=== PATIENT | female | born 1985 | race Caucasian/White ===

== ENCOUNTER 2017-11-18 14:34 | Outpatient (CLI) | payer BC | END 2017-11-18 14:35 | disposition home or self-care (01) | LOC: BICULT 14:34 | PROVIDERS: ATTEND Advanced Practice Midwife | DX: N63.20 Unspecified lump in the left breast, unspecified quadrant (principal) ==

== ENCOUNTER 2018-07-08 17:04 | Emergency (ER) | payer BC ==
[2018-07-08 17:41] LABS: #Basophils 0.1 thou/uL (0.0-0.2); #Eosinphils 0.2 thou/uL (0.0-0.7); #Lymphocytes 2.3 thou/uL (1.20-3.40); #Monocytes 0.4 thou/uL (0.11-0.59); #Neutrophils 3.7 thou/uL (1.40-6.50); %Basophils 1.1 % (0.0-1.0); %Lymphocytes 34.4 % (21.0-51.0); %Monocytes 5.9 % (0.0-10.0); %Neutrophils 55.6 % (42.0-75.0); Hemoglobin 13.7 g/dL (12.0-16.0); Mean Corpuscular HGB CONC 34.9 g/dL (32.0-36.0); Mean Corpuscular Hemoglobin 31.1 pg (27.0-31.0); Mean Platelet Volume 6.4 fL (7.4-10.4); Platelet Count 224 thou/uL (130-400); Red Blood Cell (RBC) Count 4.42 mill/uL (4.20-5.40); White Blood Cell (WBC) Count 6.7 thou/uL (4.8-10.8)
--- NOTE | 2018-07-08 17:51 | RAD ---
TWO VIEWS OF THE CHEST: 07/08/18 COMPARISON: None. HISTORY: Intermittent chest pain. FINDINGS: No pneumothorax, pleural fluid, focal consolidation, or alveolar edema. Heart and mediastinal contour s are unremarkable. IMPRESSION: No acute findings. POS: [facility]
[2018-07-08 17:58] LABS: ALT (SGPT) 16 U/L (8-55); AST (SGOT) 18 U/L (5-34); Albumin 4.6 g/dL (3.5-5.0); Alkaline Phosphatase 69 U/L (40-150); Anion Gap 15 mmol/L (10-20); BUN (Urea Nitrogen) 13 mg/dL (7.0-18.7); Bilirubin, Total 0.4 mg/dL (0.2-1.2); Calc. Creatinine Clearance 0 mL/min (70-130); Calcium 9.8 mg/dL (7.8-10.44); Carbon Dioxide 25 mmol/L (22-29); Chloride 104 mmol/L (98-107); Estimated GFR-MDRD Greater than 90; Globulin 2.8 g/dL (2.4-3.5); Glucose 94 mg/dL (70-105); Potassium 3.7 mmol/L (3.5-5.1); Protein, Total 7.4 g/dL (6.0-8.3); Sodium 140 mmol/L (136-145)
== END 2018-07-08 18:15 | disposition home or self-care (01) ==
LOC: SCSER 17:04
DX: R07.89 Other chest pain (principal); Z79.899 Other long term (current) drug therapy
CPT/HCPCS: 36415; 71046; 80053; 84484; 85025; 93005

== ENCOUNTER 2018-12-14 21:48 | Emergency (ER) | payer BC ==
[2018-12-14 22:27] LABS: #Basophils 0.1 thou/uL (0.0-0.2); #Monocytes 0.8 thou/uL (0.11-0.59); #Neutrophils 10.7 thou/uL (1.40-6.50); %Basophils 0.5 % (0.0-1.0); %Eosinophils 0.1 % (0.0-10.0); %Lymphocytes 14.8 % (21.0-51.0); %Monocytes 5.5 % (0.0-10.0); %Neutrophils 79.1 % (42.0-75.0); Hemoglobin 15.5 g/dL (12.0-16.0); Mean Corpuscular HGB CONC 36.3 g/dL (32.0-36.0); Mean Corpuscular Hemoglobin 31.9 pg (27.0-31.0); Mean Corpuscular Volume 87.9 fL (78.0-98.0); Platelet Count 330 thou/uL (130-400); RBC Distribution Width 11.2 % (11.5-14.5); Red Blood Cell (RBC) Count 4.85 mill/uL (4.20-5.40); White Blood Cell (WBC) Count 13.5 thou/uL (4.8-10.8)
--- NOTE | 2018-12-14 22:27 | RAD ---
EXAM: Single view of the chest HISTORY: Chest palpitations COMPARISON: None FINDINGS: Single view of the chest shows a normal sized cardiomediastinal silhouette. There is no macey dence of consolidation, mass, or pleural effusion. The bones are unremarkable. IMPRESSION: No evidence of acute cardiopulmonary disease
[2018-12-14 22:37] LABS: ALT (SGPT) 25 U/L (8-55); AST (SGOT) 17 U/L (5-34); Albumin 4.5 g/dL (3.5-5.0); Alkaline Phosphatase 60 U/L (40-150); Anion Gap 15 mmol/L (10-20); BUN (Urea Nitrogen) 13 mg/dL (7.0-18.7); Bilirubin, Total 0.2 mg/dL (0.2-1.2); Calc. Creatinine Clearance 0 mL/min (70-130); Calcium 9.4 mg/dL (7.8-10.44); Carbon Dioxide 21 mmol/L (22-29); Chloride 110 mmol/L (98-107); Estimated GFR-MDRD Greater than 90; Glucose 193 mg/dL (70-105); Potassium 4.2 mmol/L (3.5-5.1); Protein, Total 7.5 g/dL (6.0-8.3); Sodium 142 mmol/L (136-145)
== END 2018-12-14 23:36 | disposition home or self-care (01) ==
LOC: SCSER 21:48
DX: E05.90 Thyrotoxicosis, unspecified without thyrotoxic crisis or storm (principal); R00.0 Tachycardia, unspecified
CPT/HCPCS: 71045; 80053; 84443; 84484; 85025; 85379; 93005; 96360

== ENCOUNTER 2018-12-17 19:32 | Emergency (ER) | payer BC | END 2018-12-17 20:28 | disposition home or self-care (01) | LOC: SCSER 19:32 | DX: G44.209 Tension-type headache, unspecified, not intractable (principal); E06.3 Autoimmune thyroiditis; Z79.899 Other long term (current) drug therapy | CPT/HCPCS: 99283 ==

== ENCOUNTER 2019-09-14 16:37 | Day surgery (SDC) | payer BC ==
[2019-09-14 17:14] VITALS: BP 132/79; TEMP 98.3; BMI 24.7
[2019-09-14] MEDS ORDERED: hydrALAZINE 20 MG/ML VIAL SLOW IVP PRN (17:28)
--- NOTE | 2019-09-14 22:16 | PRG ---
DATE OF SERVICE: 09/14/2019 PRIMARY ANIMAL SHELTER CLERK: Dr. Angie Leija. CHIEF COMPLAINT: Abdominal pain. HISTORY OF PRESENT ILLNESS: The patient is a 33-year-old, G3, P2 female with an intrauterine at 37 weeks and 6 days, presenting to Labor and Delivery with several hour history of abdominal pains. The patient reports that she was feeling about every 6 minutes apart. She was counseled to come to labor and delivery shortly after her contractions start, as she is GBS positive, to ensure that she had sufficient time with her GBS prophylaxis. The patient denies any significant pain with her contractions. She denies any vaginal bleeding or leakage of fluid. She denies any fever, cough, chest pain, headache, shortness of breath, nausea, vomiting, diarrhea, constipation, hip problems, knee problems, or muscle weakness. Again, she denies vaginal bleeding or leakage of fluid. PAST MEDICAL HISTORY: Berny's, general anxiety disorder, and tachycardia. PAST SURGICAL HISTORY: [place] tooth extraction. ALLERGIES: CODEINE. MEDICATIONS: 1. Levothyroxine. 2. Metoprolol. 3. vitamins. 4. Zoloft. SOCIAL HISTORY: Denies drug, alcohol, or tobacco use with this . She does report occasional alcohol consumption when she is not . OBSTETRICAL LABORATORY DATA: Unavailable at the time of dictation. REVIEW OF SYSTEMS: Per HPI. PHYSICAL EXAMINATION: VITAL SIGNS: Blood pressure is 132/79, heart rate of 87, respiratory rate 18, O2 saturation 98% on room air, temperature 98.3. GENERAL: She appears to be in no acute distress. She is alert, oriented, cooperative, and pleasant to interact with. HEAD: Normocephalic, atraumatic. LUNGS: Clear to auscultation bilaterally. HEART: Regular rate and rhythm. ABDOMEN: Gravid, soft, nontender. EXTREMITIES: Nontender, nonedematous. CERVICAL: 3, 70 and -2 station; unchanged after 2 hours. DIAGNOSTIC DATA: heart tracing shows a baseline in the 120s with moderate long-term variability, positive 15 x 15 accelerations, no decelerations. Contractions are irregular, 2 to 6 minutes apart. ASSESSMENT AND PLAN: The patient is a 33-year-old, G3, P2 female with an intrauterine at 37 weeks and 6 days, presenting for uterine contractions. The patient has no evidence of labor at this time. The patient has been given term labor precautions and being discharged to home. Fetus has a category 1 tracing and reactive NST. Job ID: [id number]
== END 2019-09-14 19:30 | disposition home or self-care (01) ==
LOC: L&D/OP 16:37
PROVIDERS: ATTEND Obstetrics & Gynecology
DX: O47.1 False labor at or after 37 completed weeks of gestation (principal); O99.343 Other mental disorders complicating pregnancy, third trimester; F41.9 Anxiety disorder, unspecified; O99.283 Endocrine, nutritional and metabolic diseases complicating pregnancy, third trimester; E06.3 Autoimmune thyroiditis; O99.89 Other specified diseases and conditions complicating pregnancy, childbirth and the puerperium; R00.0 Tachycardia, unspecified; Z3A.37 37 weeks gestation of pregnancy; Z79.899 Other long term (current) drug therapy; Z88.5 Allergy status to narcotic agent
CPT/HCPCS: 99283

== ENCOUNTER 2019-09-20 05:30 | Inpatient (IN) | payer BC ==
[2019-09-20] MEDS ORDERED: NS w/ Oxytocin 10 units 500 ML IV SCH (06:07)
[2019-09-20] MEDS ORDERED: Carboprost 250 MCG/ML AMP IM PRN (06:07)
[2019-09-20] MEDS ORDERED: Lidocaine 1% (PF) 30 ML VIAL SC PRN (06:07)
[2019-09-20] MEDS ORDERED: HYDROcodone/Acetaminophen 5/325 mg Tablet PO PRN (06:07)
[2019-09-20] MEDS ORDERED: Misoprostol 200 MCG TAB PR PRN (06:07)
[2019-09-20] MEDS ORDERED: Promethazine HCl 25 MG/ML VIAL IM PRN ×2 (06:07→11:41)
[2019-09-20] MEDS ORDERED: Diphenoxylate HCl/Atropine Tablet PO PRN (06:07)
[2019-09-20] MEDS ORDERED: Ibuprofen 800 MG TAB PO PRN (06:07)
[2019-09-20] MEDS ORDERED: NS / Oxytocin 40 units/1000ml 1,000 ML IV PRN (06:07)
[2019-09-20] MEDS ORDERED: Ondansetron PF 4 MG/2 ML Vial IVP PRN ×2 (06:07→11:41)
[2019-09-20] MEDS ORDERED: hydrALAZINE 20 MG/ML VIAL SLOW IVP PRN ×2 (06:07→13:43)
[2019-09-20 06:18] VITALS: BMI 24.4
[2019-09-20] MEDS ORDERED: Penicillin G Potassium 5 MILL.UNITS in Sodium Chloride 0.9% 100 ML IVPB SCH (06:30)
[2019-09-20] MEDS: Lactated Ringer's 1,000 ML IV SCH ×2 (06:33→11:33)
[2019-09-20 06:44] LABS: Hemoglobin 13.2 g/dL (12.0-16.0); Mean Corpuscular HGB CONC 36.4 g/dL (32.0-36.0); Mean Corpuscular Volume 96.4 fL (78.0-98.0); Mean Platelet Volume 6.2 fL (7.4-10.4); Platelet Count 231 thou/uL (130-400); Red Blood Cell (RBC) Count 3.77 mill/uL (4.20-5.40); White Blood Cell (WBC) Count 10.1 thou/uL (4.8-10.8)
[2019-09-20 07:31] LABS: HBSAg Index 0.24 S/CO (0-0.99); Hep B Surf Ag Non-Reactive S/CO (NonReactive); Syphilis Antibody Nonreactive (Nonreactive); Syphilis Antibody Index 0.04 S/CO (<1.00 Non-Reactive)
[2019-09-20] MEDS ORDERED: Bupivacaine 0.25% HCL 30 ML VIAL ONE (08:43)
[2019-09-20] MEDS: Penicillin G 2.5 MILL.units 2.5 MILL.UNITS in Premix Bag 1 BAG IVPB SCH ×3 (10:39→17:24)
[2019-09-20] MEDS ORDERED: Fentanyl 4 mcg/Bup 0.1% Cadd 100 ML ONE (10:52)
[2019-09-20] MEDS ORDERED: EPHEDRINE 25 MG/5 ML SYRINGE SLOW IVP PRN (11:41)
[2019-09-20] MEDS ORDERED: Naloxone HCl 0.4 mg/ml Vial IVP PRN ×2 (11:41)
[2019-09-20] MEDS ORDERED: Acetaminophen 325 MG TAB PO PRN (11:41)
[2019-09-20] MEDS ORDERED: diphenhydrAMINE 50 MG/ML VIAL IVP PRN (11:41)
[2019-09-20] MEDS ORDERED: Lactated Ringer's 500 ML IV PRN (11:41)
[2019-09-20] MEDS ORDERED: Communication Order-Pharmacy FS SCH (11:45)
[2019-09-20] MEDS ORDERED: Fentanyl 4 mcg/Bupivacaine 0.1% Cassette 100 ML EPIDURAL SCH (11:45)
[2019-09-20] MEDS ORDERED: Bisacodyl 10 MG SUPP PR PRN (13:43)
[2019-09-20] MEDS ORDERED: Milk Of Magnesia 30 ML UDCUP PO PRN (13:43)
[2019-09-20] MEDS ORDERED: traMADol HCl 50 MG TAB PO PRN (13:43)
[2019-09-20] MEDS ORDERED: Benzocaine-Menthol 82.5 ML CAN TOP PRN (13:43)
[2019-09-20] MEDS ORDERED: Preparation H Ointment 28 GM TUBE PR PRN (13:43)
[2019-09-20] MEDS ORDERED: NS / Oxytocin 40 units/1000ml 1,000 ML IV SCH (13:45)
--- NOTE | 2019-09-20 13:46 | PDOC.OPDEL ---
OB Operative/Delivery Note Delivery Dr/Surgeon: Liss Pre-Delivery Diagnosis: elective induction Procedure/Post Delivery Dx: spontaneous vaginal delivery Weeks gestation: 39 Anesthesia: epidural - Findings A Sex: male - 1 min: 8 - 5 min: 9 - Additional Findings/Plan Placenta delivered: spontaneous Repaired Obstetrical Laceration: 1st degree Estimated blood loss: 100 ml qbl Post delivery plan: routine recovery
[2019-09-20] MEDS: Ibuprofen 800 MG TAB PO SCH ×2 (15:17→22:37)
[2019-09-20] MEDS: Ferrous Sulfate 325 MG TAB PO SCH (16:48)
[2019-09-20] MEDS ORDERED: Sodium Chloride 0.9% 10 ML ONE (22:26)
[2019-09-20] MEDS: Docusate Calcium (SURFAK) 240 MG CAP PO SCH (22:37)
[2019-09-21] MEDS: Ibuprofen 800 MG TAB PO SCH ×2 (06:06→14:45)
[2019-09-21 07:23] VITALS: BP 105/70; TEMP 98
--- NOTE | 2019-09-21 08:31 | PDOC.PP ---
Post Progress Note Post Day #: 1 Subjective: Feels well. would like to go home today if baby ready. Vital Signs (12 hours) Temp Pulse Resp BP Pulse Ox 09/21/19 07:22 98.0 F 80 20 105/70 99 09/21/19 06:04 97.7 F 86 12 113/59 L 98 09/21/19 01:01 98.0 F 68 12 124/77 98 09/20/19 20:56 97.7 F 71 12 125/76 98 Weight Weight 138 lb Result Diagrams: 09/20/19 06:37 Additional Labs: Post Labs Blood Type A NEGATIVE 09/20/19 06:37 Hep Bs Antigen Non-Reactive S/CO (NonReactive) 09/20/19 06:37 - Assessment/Plan Post day 1. multip . GBS carrier-adequately treated. D/c home if baby ready ...f/u 6 weeks.
[2019-09-21] MEDS ORDERED: Prenatal Vitamin 1 TAB PO SCH (09:00)
[2019-09-21] MEDS ORDERED: Adacel (T-DAP) 0.5 ML SYRINGE IM ONE (09:00)
[2019-09-21] MEDS: Docusate Calcium (SURFAK) 240 MG CAP PO SCH (09:10)
[2019-09-21] MEDS: Ferrous Sulfate 325 MG TAB PO SCH (09:11)
--- NOTE | 2019-09-22 03:23 | PQF ---
ROXANNE Case MD [id number] CLINICAL DOCUMENTATION CLARIFICATION FORM: POST DISCHARGE Addendum to original discharge summary date: ____ Late entry note date: __ DATE: 09/22/2019 ATTN: Roxanne Leija Please exercise your independent, professional judgment in responding to the clarification form. Clinical indicators are provided on the bottom of this form for your review Please check appropriate box(s): [ ] Associated Diagnosis: Acute blood loss anemia [ ] Not clinically significant laboratory findings [ ] Other diagnosis [ ] Unable to determine In addition, please specify: Present on Admission (POA): [ ] Yes [ ] No [ ] Unable to determine For continuity of documentation, please document condition throughout progress notes and discharge summary. Thank You. CLINICAL INDICATORS - SIGNS / SYMPTOMS/ LABS are present in the medical record: Labs 09/19: RBC=3.77 Hgb=13.2 Hct=36.4 Vital signs BP: 09/2032=816/59 Labor and delivery 09/19 "EBL:100ml" RISK FACTORS Labor and delivery 09/19-39 weeks gestation Labor and delivery 09/19-s/p Labor and delivery 09/19-First degree laceration TREATMENT Labor and delivery 09/19-Repair of laceration Collected 09/19-Laboratory monitoring AUG 17-IVF AUG 17-Ferrous Sulfate 325mg Oral (This form is maintained as a part of the permanent medical record) 2014 [employer] All Rights Reserved [email or web address] [phone] [email or web address]
== END 2019-09-21 17:08 | disposition home or self-care (01) | DRG 807 ==
LOC: L&D 05:53 → 3SW 16:50
PROVIDERS: ADMIT Obstetrics & Gynecology; ATTEND Obstetrics & Gynecology
PROC: 3E0234Z Introduction of Serum, Toxoid and Vaccine into Muscle, Percutaneous Approach (ICD-10-PCS; 2019-09-20)
PROC: 10E0XZZ Delivery of Products of Conception, External Approach (ICD-10-PCS; principal; 2019-09-21)
PROC: 0HQ9XZZ Repair Perineum Skin, External Approach (ICD-10-PCS; 2019-09-21)
PROC: 3E033VJ Introduction of Other Hormone into Peripheral Vein, Percutaneous Approach (ICD-10-PCS; 2019-09-21)
DX: O99.820 Streptococcus B carrier state complicating pregnancy (principal); Z37.0 Single live birth; Z3A.39 39 weeks gestation of pregnancy; Z23 Encounter for immunization; O70.0 First degree perineal laceration during delivery
CPT/HCPCS: 36415; 51702; 85027; 85461; 86780; 86850; 86870; 86900; 86901; 87340; 90384; 96372; J2540; J2590; J3490; S0020